=== PATIENT | female | born 1965 | race Caucasian/White ===

== ENCOUNTER → 2017-10-31 | Outpatient (CLI) | payer BC ==
--- NOTE | 2017-10-31 18:07 | US ---
EXAMINATION TYPE: US venous doppler duplex LE LT DATE OF EXAM: 10/31/2017 5:43 PM COMPARISON: NONE CLINICAL HISTORY: Pain in left ankle and joints of left foot M25.572. Pain and swelling left leg SIDE PERFORMED: Left TECHNIQUE: The lower extremity deep venous system is examined utilizing real time linear array sonog saira with graded compression, doppler sonography and color-flow sonography. VESSELS IMAGED: External Iliac Vein (EIV) Common Femoral Vein Deep Femoral Vein Greater Saphenous Vein * Femoral Vein Popliteal Vein Small Saphenous Vein * Proximal Calf Veins (* superficial vessels) Left Leg: Negative for DVT IMPRESSION: Negative exam. No evidence of deep venous thrombosis in the left leg.
== END | disposition home or self-care (01) ==
LOC: RADUSMAIN 17:16
PROVIDERS: ATTEND Orthopaedic Surgery
DX: M79.662 Pain in left lower leg (principal); M25.572 Pain in left ankle and joints of left foot

== ENCOUNTER → 2018-07-03 | Outpatient (CLI) | payer BC ==
[2018-07-03 09:46] LABS: Basophils % (A) 1 %; Eosinophils # (A) 0.2 k/uL (0-0.7); Eosinophils % (A) 4 %; HCT 40.7 % (34.0-46.0); HGB 13.1 gm/dL (11.4-16.0); Lymphocytes # (A) 1.8 k/uL (1.0-4.8); Lymphocytes % (A) 31 %; MCH 29.5 pg (25.0-35.0); MCHC 32.2 g/dL (31.0-37.0); MCV 91.6 fL (80.0-100.0); Mean Platelet Volume 8.2; Monocytes # (A) 0.4 k/uL (0-1.0); Monocytes % (A) 8 %; Neutrophils # (A) 3.2 k/uL (1.3-7.7); Neutrophils % (A) 55 %; Platelet Count 245 k/uL (150-450); RBC 4.45 m/uL (3.80-5.40); RDW 12.7 % (11.5-15.5); WBC 5.8 k/uL (3.8-10.6)
== END | disposition home or self-care (01) ==
LOC: LABPAT 08:39
PROVIDERS: ATTEND Obstetrics & Gynecology Obstetrics
DX: Z01.818 Encounter for other preprocedural examination (principal); Z01.812 Encounter for preprocedural laboratory examination; N85.01 Benign endometrial hyperplasia; N93.9 Abnormal uterine and vaginal bleeding, unspecified
CPT/HCPCS: 36415; 85025; 93005

== ENCOUNTER 2018-07-11 08:46 | Day surgery (SDC) | payer BC ==
[2018-07-04 11:26] VITALS: BMI 36.9
--- NOTE | 2018-07-10 17:48 | HP ---
HISTORY AND PHYSICAL DATE OF SURGERY: 07/11/2018 CHIEF COMPLAINT: Irregular postmenopausal bleeding. HISTORY OF PRESENT ILLNESS: This is a very pleasant 52-year-old 0 para 0 who has been being followed for endometrial hyperplasia with no atypia. Patient has been on Megace treatment and is due for repeat sampling. Patient was unable to tolerate endometrial biopsy in the office. The patient denies any pelvic pain, but she is noting irregular-appearing postmenopausal bleeding on the Megace. She, as stated above, underwent an endometrial biopsy which showed endometrial hyperplasia in the background of proliferative endometrium. No new concerns were noted today. PAST MEDICAL HISTORY: Significant for hypertension and hypothyroidism. PAST SURGICAL HISTORY: Knee surgery and shoulder surgery. MEDICATION: 1. Levothyroxine 112 mcg. 2. Losartan. 3. Megace 40 mg 1 daily. 4. Vitamin D3. ALLERGIES: AUGMENTIN and KEFLEX. FAMILY HISTORY: Significant for heart disease, diabetes, colon cancer and cervical cancer in her mother. REPRODUCTIVE HISTORY: As stated above, she is 0 with her last menstrual period being November 25, 2017. SOCIAL HISTORY: She is a nonsmoker. She does admit to some alcohol abuse and caffeine daily. REVIEW OF SYSTEMS: She denies any fatigue, fever or chills. BREASTS: She denies any lumps, tenderness, swelling. GASTROINTESTINAL: No nausea, vomiting, diarrhea, constipation. GENITOURINARY: She denies any urgency, frequency, dysuria or incontinence. She does note postmenopausal bleeding. Vital signs are stable. PHYSICAL EXAMINATION: This is a very pleasant well-nourished and well-developed female in no acute distress. Heart is noted to have regular rate and rhythm. Breathing is noted to be non-labored. Her lungs are clear to auscultation bilaterally. ABDOMEN: Soft. No masses are palpated. GENITOURINARY: External vaginal tissue is noted to be normal and appropriate for age. The vaginal mucosa is noted to be pale in nature. Cervix is noted to be normal without lesion. On bimanual exam the uterus is noted to be mobile and nontender. No adnexal masses are appreciated, but difficult due to body habitus. ASSESSMENT: Endometrial hyperplasia. Given the patient's inability to tolerate her endometrial biopsy in the office, we will plan hysteroscopy, dilation and curettage. Patient states understanding. She denies concerns or questions about the procedure. Procedure is reviewed in detail. Risks are reviewed with the patient, including infection, bleeding, uterine perforation and possible need for subsequent surgery. The patient states understanding and wishes to proceed. MMODL / IJN: [id number] /
[~2018-07-11 08:46] MED LIST: DEXAMETHASONE SOD PHOSPHATE 10 MG/ML 1 ML VIAL IV ONE; HYDROmorphone 0.5 MG/0.5 ML SYRINGE IVP PRN; LACTATED RINGERS 1,000 ML IV SCH; LIDOCAINE 1% 20 ML VIAL (10MG/ML) FOR IV START INTRADERMA PRN; MIDAZOLAM 2 MG/2 ML VIAL IV PRN; ONDANSETRON 4 MG/2 ML VIAL IVP ONE; Pre Op ABX Message 1 EACH MISC MISCELLANE ONE; SCOPOLAMINE 1.5MG/72HR PATCH TRANSDERM ONE
[2018-07-11] MEDS ORDERED: MIDAZOLAM 2 MG/2 ML VIAL IVP ONE (10:00)
[2018-07-11] MEDS ORDERED: KETOROLAC 30 MG/ML 1 ML VIAL ONE (10:24)
[2018-07-11] MEDS ORDERED: SUCCINYLCHOLINE CHLORIDE 100 MG/5 ML SYR IV ONE (10:24)
[2018-07-11] MEDS ORDERED: fentaNYL (PF) 50 MCG/ML 2 ML AMP ONE (10:24)
[2018-07-11] MEDS ORDERED: MIDAZOLAM 2 MG/2 ML VIAL ONE (10:24)
[2018-07-11] MEDS ORDERED: PROPOFOL 10 MG/ML 20 ML VIAL IV ONE (10:24)
[2018-07-11] MEDS ORDERED: LIDOCAINE 1% INJ 10MG/ML (20 ML MDV) ONE (10:24)
--- NOTE | 2018-07-11 10:53 | P.OP ---
Date of Procedure: 07/11/18 Preoperative Diagnosis: PMB, endometrial hyperplasia without atypia s/p megace treatment, unable to tolerate office EMB Postoperative Diagnosis: Same Procedure(s) Performed: Hysteroscopy, dilation and curettage Anesthesia: MAC Surgeon: Lexus Mullins Estimated Blood Loss (ml): 5 IV fluids (ml): 200 Urine output (ml): 150 Pathology: other (Endometrial curettings) Condition: stable Disposition: PACU Indications for Procedure: Simple hyperplasia without atypia status post Megace treatment Operative Findings: Proliferative endometrium Description of Procedure: Patient was taken back to the operating suite after being seen in the preoperative area and all questions are answered. General anesthesia was obtained by the anesthesia department. She was then prepped and draped in normal sterile fashion in the dorsal lithotomy position. A red rubber catheter was then used to drain the bladder of clear yellow urine. The weighted speculum was placed in the posterior vaginal vault the anterior lip of the cervix is visualized and grasped with a single-tooth tenaculum. The uterus was then sounded to 9 cm. Hanks dilator was then used to dilate the cervix 18-Chinese, a sharp curettage was then performed until gritty texture was noted in all 4 quadrants the cavity after hysteroscopy revealed proliferative endometrium. At this point the single-tooth tenaculum was taken off of the anterior lip of the cervix and hemostasis was appreciated. All counts were correct 2 and patient tolerated procedure well.
[2018-07-11] MEDS ORDERED: LACTATED RINGERS 1,000 ML IV ONE (11:52)
[2018-07-11 12:29] VITALS: RESP 18; TEMP 98.7
[2018-07-11 12:51] VITALS: BP 135/80; PULSE 76
== END 2018-07-11 13:18 | disposition home or self-care (01) ==
LOC: OR 08:46
PROVIDERS: ATTEND Obstetrics & Gynecology Obstetrics
DX: N95.0 Postmenopausal bleeding (principal); N85.00 Endometrial hyperplasia, unspecified; I10 Essential (primary) hypertension; E03.9 Hypothyroidism, unspecified; Z79.890 Hormone replacement therapy; Z79.899 Other long term (current) drug therapy; Z88.1 Allergy status to other antibiotic agents
CPT/HCPCS: 58558; 81025; 88305; J2250; J1100; J2405; J2001; J3010; J1885; J0330; J2704; J1170